=== PATIENT | female | born 1980 | race Caucasian/White ===

== ENCOUNTER 2023-04-18 20:38 | Emergency (ER) | payer SELFPAY ==
[2023-04-18 20:50] VITALS: BP 121/73; PULSE 117; RESP 16; TEMP 36.3; O2SAT 98; BMI 25.8
--- NOTE | 2023-04-18 20:52 | ED.GENADULT ---
HPI - General Adult General Chief complaint: Cough Stated complaint: Chills, body aches, vomiting Time Seen by Provider: 04/18/23 20:42 History of Present Illness HPI narrative: Patient here today with body aches, vomiting x2, slight cough and associated shortness of breath. Has taken ibuprofen prior to coming in. Took an at home COVID test at 3 pm that was negative. Started yesterday, symptoms worse today. 42-year-old woman presenting to the emergency department accompanied by [id number] and I believe her . Primary complaint is some back ache and vomiting. She has vomited a couple of times; as I was arriving to assess her. Did not measure a fever. Did take some ibuprofen. Home COVID testing was negative. No diarrhea. No rashes. No particular exposures. Is not short of breath at this time. Denies dysuria and now less frequency but when I ask again later in the visit she does recall that 2 weeks ago was experiencing some urinary frequency and dysuria. Related Data Previous Rx's Medication Instructions Recorded ciprofloxacin HCl 500 mg tablet 500 mg PO BID 8 days #16 tabs 04/18/23 (Cipro) promethazine 25 mg tablet 25 mg PO TID PRN nausea and 04/18/23 vomiting #10 tabs Allergies Allergy/AdvReac Type Severity Reaction Status Date / Time No Known Drug Allergies Allergy Verified 04/17/22 12:18 Review of Systems Status of ROS: Reports: 6 or more systems reviewed and unremarkable except as noted in History and below PFSH PFS Social History Smoking Status: Never smoker How often do you have a drink containing alcohol: never AUDIT-C Alcohol total score: 0 Non-prescribed substance use: denies use service: No Exam Narrative: Exam Narrative: Had ambulated to bathroom where I did hear her vomit. I returned then to find her curled up under a blanket on the bed. Seems uncomfortable. Carefully casually groomed. Hair is dyed red and pulled back tightly. Skin is warm and dry. Oropharynx is moist. Neck is supple without LA. Lungs are clear heart in elevated rate, tachycardic in a regular rhythm. Abdomen is soft and nontender. She is sore generally to palpation in her back which does include her flanks. She is indicated her right flank as maybe more tender. No masses are appreciated in the abdomen. Normal bowel sounds. Const: Vital Signs, click to edit/add: Vital Signs - 24 hr 04/18/23 20:50 04/18/23 22:14 Temperature 97.3 F L Pulse Rate [Right Pulse Oximeter] 117 H 111 H Respiratory Rate 16 16 Blood Pressure [Ri ght Upper Arm] 121/73 101/56 L Pulse Oximetry 98 97 Oxygen Delivery Me thod Room Air Room Air Documenting provider has reviewed patient's vital signs: yes Course Vital Signs Vital signs: Initial Vital Signs Temperature 97.3 F L 04/18/23 20:50 Temperature Source Temporal Artery Scan 04/18/23 20:50 Pulse Rate 117 H 04/18/23 20:50 Pulse Rhythm Regular 04/18/23 20:50 Respiratory Rate 16 04/18/23 20:50 Blood Pressure 121/73 04/18/23 20:50 Blood Pressure Mean 89 04/18/23 20:50 Blood Pressure Position Sitting 04/18/23 20:50 Pulse Oximetry 98 04/18/23 20:50 Oxygen Delivery Method Room Air 04/18/23 20:50 Vital Signs Temperature 97.3 F L 04/18/23 20:50 Pulse Rate 117 H 04/18/23 20:50 Respiratory Rate 16 04/18/23 20:50 Blood Pressure 121/73 04/18/23 20:50 Pulse Oximetry 98 04/18/23 20:50 Oxygen Delivery Method Room Air 04/18/23 20:50 Temperature 97.3 F L 04/18/23 20:50 Pulse Rate 111 H 04/18/23 22:14 Respiratory Rate 16 04/18/23 22:14 Blood Pressure 101/56 L 04/18/23 22:14 Pulse Oximetry 97 04/18/23 22:14 Oxygen Delivery Method Room Air 04/18/23 22:14 Medical Decision Making MDM Narrative Medical decision making narrative: May simply have a viral process with myalgias and evolving gastritis, pyelonephritis/UTI, pneumonia though without evidence of significant respiratory symptoms. Tachycardia is concerning. Without insurance. Discussed in more detail treatment and evaluation considerations. She would like to proceed with IV placement in fluids in order to feel better faster as encouraged by her [id number]. Did obtain labs looking for evidence of infectious etiology. Initiated normal saline IV and Zofran. Overall improved on re-evaluation though with a headache. This resolved with ibuprofen. Seems to have more energy on repeat assessment feels she could manage at home. Tolerating p.o.. COVID and influenza testing negative. White count is elevated at a 14.7. Urinalysis looks to be positive with blood nitrite leukocyte esterase 5-10 white cells on microscopic. I think this is consistent with her symptoms and I would have concern for evolving pyelonephritis. Therefore hydrated as above initiated on ciprofloxacin. Further ciprofloxacin and promethazine sent to [place] with [facility]. See patient discharge plan Lab Data Lab results reviewed: Yes I reviewed the patient's lab results Labs: Lab Results 04/18/23 04/18/23 Range/Units 21:20 22:07 WBC 14.17 H (4.50-11.00) K/uL RBC 4.94 (4.00-5.20) m/uL Hgb 11.9 L (12.0-16.0) gm/dL Hct 37.6 (33.0-51.0) % MCV 76 L (80-100) fL MCH 24 L (26-34) pg MCHC 32 (32-36) gm/dL RDW Coeff of Ronit 15.9 H (11.5-15.5) % Plt Count 180 (140-440) K/uL Neut % (Auto) 86.2 H (42.0-72.0) % Lymph % (Auto) 5.2 L (20-44) % [place] % (Auto) 8.0 (0.0-11.0) % Eos % (Auto) 0.1 (0.0-7.0) % Baso % (Auto) 0.1 (0.0-3.0) % Neut # (Auto) 12.20 H (1.7-7.0) K/uL Lymph # (Auto) 0.70 L (0.90-2.90) K/uL [place] # (Auto) 1.10 H (0.00-0.90) K/UL Eos # (Auto) 0.00 (0.00-0.50) K/uL Baso # (Auto) 0.00 (0.00-0.30) K/uL Abs Immat Gran (auto) 0.10 (0.00-0.30) K/uL Imm/Tot Granulo (auto) 0.4 % Urine Color Yellow (Yellow) Urine Appearance Clear (Clear) Urine pH 6.0 (5.0-8.5) Ur Specific [place] 1.020 (1.000-1.030) Urine Protein 2+ A (Negative) Urine Glucose (UA) Negative (Negative) Urine Ketones Trace A (Negative) Urine Blood 2+ A (Negative) Urine Nitrite Positive A (Negative) Urine Bilirubin Negative (Negative) Urine Urobilinogen 1.0 (0.2-1.0) Ur Leukocyte Esterase 1+ A (Negative) Urine RBC 2-5 A (0-2) Urine WBC 5-10 A (0-5) Ur Squamous Epith Cells Moderate A (None-Few) Urine Bacteria Moderate A (None) Fine Granular Casts Few A (None) Urine HCG, Qual Negative (Negative) SARS-CoV-2 (PCR) Negative SARS-CoV-2 (Negative) Influenza Type A (PCR) Negative PCR FLU A (Negative) Influenza Type B (PCR) Negative PCR FLU B (Negative) Lab Acknowledgement Test Added Discharge Plan Discharge Clinical Impression: Urinary tract infection Condition: Improved Additional Instructions: Important to focus on hydration with unsweetened/unsugared fluid -- water is good. Be re-evaluated for persistent fever, repeated vomiting, uncontrolled pain. A urine culture is pending here and we will call you if an antibiotic change is needed. Can take up to 800 mg of ibuprofen or up to 1000 mg of acetaminophen per dose. Prescriptions: New ciprofloxacin HCl [Cipro] 500 mg tablet 500 mg PO BID 8 Days Qty: 16 0RF promethazine 25 mg tablet 25 mg PO TID PRN (Reason: nausea and vomiting) Qty: 10 0RF Follow Up/Referrals: Reny Eason [Primary Care Provider] - Stand Alone Forms: [employer] [facility] Info Instructions
--- NOTE | 2023-04-18 20:58 | ED.NURSE ---
[id number] interpreting per patient request.
[2023-04-18] MEDS: 0.9 % SODIUM CHLORIDE 1000 ml 1,000 ML 2000 ML IV (21:15)
[2023-04-18] MEDS: ONDANSETRON 2 MG/ML inj 4 MG IVP (21:15)
[2023-04-18 21:37] LABS: Appearance Urine Clear (Clear); Basophils Percent Auto 0.1 % (0.0-3.0); Bilirubin Urine Negative (Negative); Blood Urine 2+ (Negative); Color Urine Yellow (Yellow); Eosinophils Percent Auto 0.1 % (0.0-7.0); Glucose Urine Negative (Negative); Hematocrit 37.6 % (33.0-51.0); Hemoglobin* 11.9 gm/dL (12.0-16.0); Immature Granulocytes Pct Auto 0.4 %; Ketones Urine Trace (Negative); Leukocyte Esterase Urine 1+ (Negative); Lymphocytes Percent Auto 5.2 % (20-44); Mean Corpuscular HGB Conc 32 gm/dL (32-36); Mean Corpuscular Hemoglobin 24 pg (26-34); Mean Corpuscular Volume 76 fL (80-100); Neutrophils Percent Auto 86.2 % (42.0-72.0); Nitrite Urine Positive (Negative); Platelet Count* 180 K/uL (140-440); Protein Urine 2+ (Negative); RDW Coefficient of Variation % 15.9 % (11.5-15.5); Red Blood Count 4.94 m/uL (4.00-5.20); White Blood Count* 14.17 K/uL (4.50-11.00)
[2023-04-18 21:42] LABS: Bacteria Urine Moderate; Slide Review Reflex No; Squamous Epithelial Cell Urine Moderate (None-Few)
[2023-04-18 21:43] LABS: Fine Granular Casts Urine Few
[2023-04-18 22:13] LABS: PCR FLU A Negative PCR FLU A (Negative); PCR FLU B Negative PCR FLU B (Negative)
[2023-04-18 22:14] VITALS: BP 101/56; PULSE 111; RESP 16; O2SAT 97
[2023-04-18 22:17] LABS: Ur HCG Qualitative* Negative (Negative)
[2023-04-18 22:23] LABS: SARS PCR* Negative SARS-CoV-2 (Negative)
[2023-04-18] MEDS: CIPROFLOXACIN 500 MG TABLET PO (22:34)
[2023-04-18] MEDS: IBUPROFEN 200 MG TABLET 600 MG PO (22:34)
== END 2023-04-18 23:29 | disposition home or self-care (01) ==
PROVIDERS: Emergency Provider Family Medicine; PCP Nurse Practitioner Family
DX: N39.0 Urinary tract infection, site not specified (principal)
CPT/HCPCS: 36415; 81001; 81025; 85025; 87086; 87186; 87631; 96361; 96374; 99284; A9270; J2405; J7030

== ENCOUNTER 2023-08-15 13:35 | Outpatient (CLI) | payer OTHER, SELFPAY ==
--- NOTE | 2023-08-14 19:00 | CRLHL7_ITS ---
For Patients: As a result of the Cures Act, medical imaging exams and procedure reports are released immediately into your electronic medical record. You may view this report before your referring provider. If you have questions, please contact your health care provider. BILATERAL SCREENING MAMMOGRAM WITH COMPUTER-AIDED DETECTION AND TOMOSYNTHESIS TECHNIQUE: CC and MLO views were obtained. These mammographic images have been obtained using full-field digital technique. These mammographic images were interpreted with the benefit of computer-aided detection. Breast tomosynthesis was used in this interpretation. COMPARISON FILM: 12/24/20. FINDINGS: The breasts are heterogeneously dense, which may obscure small masses. IMPRESSION: There is no radiographic evidence for malignancy. ASSESSMENT: BI-RADS Category 1: Negative RECOMMENDATION: Routine screening mammogram in 1 year. A lay language report of this examination will be provided to the patient. BRANT SKINNER M.D. Diagnostic Radiologist [email or web address] Transcribed: 08/15/2023, 6:[address]/Dictated by: Brant Skinner MD @ 08/15/2023 9:58:00 AM (Electronically Signed)
== END 2023-08-15 13:36 | disposition home or self-care (01) ==
LOC: MAMMO 13:36
PROVIDERS: PCP Nurse Practitioner Family; Visit Provider Nurse Practitioner Family
DX: Z12.31 Encounter for screening mammogram for malignant neoplasm of breast (principal); R92.2 Inconclusive mammogram
CPT/HCPCS: 77063; 77067